=== PATIENT | female | born 1930 | race Caucasian/White ===

== ENCOUNTER 2017-09-30 13:54 | Emergency (ER) | payer MEDICARE, OTHER ==
[~2017-09-30] VITALS: Ht 144.8 cm; Wt 47.2 kg
[~2017-09-30 13:54] MED LIST: ATOR20TA PO; Acetaminophen PO; DIAZ2TAB PO; ESCI10TA PO; LEVO112T2 PO
[2017-09-30] MEDS ORDERED: LIDOCAINE HCL 1% 20 ML VIAL TP ONE (14:30)
[2017-09-30] MEDS ORDERED: ACETAMINOPHEN ES 500 MG TABLET PO ONE (14:30)
[2017-09-30] MEDS ORDERED: ACETAMINOPHEN ES 500 MG TABLET ONE (14:43)
--- NOTE | 2017-09-30 15:50 | NUR ---
Patient discharged to home in stable conditon. Written and verbal after care instructions given. Patient verbalizes understanding of instructions.
[2017-09-30 15:51] VITALS: BP 158/88
== END 2017-09-30 15:52 | disposition home or self-care (01) ==
LOC: ER 13:54
DX: S62.633B Displaced fracture of distal phalanx of left middle finger, initial encounter for open fracture (principal); Z88.0 Allergy status to penicillin; Z88.5 Allergy status to narcotic agent; E03.9 Hypothyroidism, unspecified; E78.5 Hyperlipidemia, unspecified; W23.0XXA Caught, crushed, jammed, or pinched between moving objects, initial encounter; Y93.89 Activity, other specified; Y92.810 Car as the place of occurrence of the external cause; Y99.8 Other external cause status
CPT/HCPCS: 29130; 73140; 99284; A4663; J3490

== ENCOUNTER 2017-10-03 13:32 | Emergency (ER) | payer MEDICARE, OTHER ==
[~2017-10-03] VITALS: Ht 144.8 cm; Wt 47.2 kg
[~2017-10-03 13:32] MED LIST changes: -DIAZ2TAB PO; -ESCI10TA PO
[2017-10-03] MEDS ORDERED: NEOMY/BACITRA/POLYMYXIN B OINT UD PACKET TP ONE ×2 (14:15→14:23)
[2017-10-03] MEDS ORDERED: TRAMADOL HCL 50 MG TABLET PO ONE (14:15)
[2017-10-03] MEDS ORDERED: ONDANSETRON ODT 4 MG TAB.RAPDIS SL ONE (14:15)
--- NOTE | 2017-10-03 14:22 | NUR ---
Dressing applied to RT middle finger per MD order.
--- NOTE | 2017-10-03 14:31 | NUR ---
Patient discharged to home in stable conditon. Written and verbal after care instructions given. Patient verbalizes understanding of instructions.
[2017-10-03 14:32] VITALS: BP 120/66
[2017-10-03] MEDS ORDERED: ONDANSETRON ODT 4 MG TAB.RAPDIS ONE (14:43)
[2017-10-03] MEDS ORDERED: TRAMADOL HCL 50 MG TABLET ONE (14:43)
== END 2017-10-03 14:34 | disposition home or self-care (01) ==
LOC: ER 13:35
DX: T81.4XXA Infection following a procedure, initial encounter (principal); G89.29 Other chronic pain; M54.5 Low back pain; E78.5 Hyperlipidemia, unspecified; E03.9 Hypothyroidism, unspecified; Z88.0 Allergy status to penicillin; Z88.5 Allergy status to narcotic agent; Y83.8 Other surgical procedures as the cause of abnormal reaction of the patient, or of later complication, without mention of misadventure at the time of the procedure; Y92.89 Other specified places as the place of occurrence of the external cause
CPT/HCPCS: A4663; Q0162

== ENCOUNTER 2017-10-04 11:15 | Emergency (ER) | payer MEDICARE, OTHER ==
[~2017-10-04] VITALS: Ht 144.8 cm; Wt 42.6 kg
--- NOTE | 2017-10-04 12:09 | NUR ---
Patient discharged to home in stable conditon. Written and verbal after care instructions given. Patient verbalizes understanding of instructions.PT WALKS IN STEADY GAIT. PT ACCOMPANIED BY FAMILY MEMBER.
== END 2017-10-04 12:12 | disposition home or self-care (01) ==
LOC: ER 11:15
DX: Z48.00 Encounter for change or removal of nonsurgical wound dressing (principal); E03.9 Hypothyroidism, unspecified; E78.5 Hyperlipidemia, unspecified; Z88.0 Allergy status to penicillin; Z88.5 Allergy status to narcotic agent
CPT/HCPCS: A4217; A4663